=== PATIENT | female | born 1955 | race African-American/Black ===

== ENCOUNTER 2018-06-09 10:43 | Emergency (ER) | payer OTHER ==
[~2018-06-09] VITALS: Ht 152.4 cm; Wt 55.8 kg
[2018-06-09 11:02] VITALS: BP_SYST 156
[2018-06-09] MEDS ORDERED: KETOROLAC TROMETHAMINE 60 MG/2 ML VIAL IM ONE (12:15)
[2018-06-09 12:25] LABS: BILIRUBIN,URINE NEGATIVE (NEGATIVE); BLOOD, URINE 3+ (NEGATIVE); CLARITY/URINE CLEAR (CLEAR); COLOR,URINE YELLOW (YELLOW); GLUCOSE,URINE NEGATIVE (NEGATIVE); KETONES,URINE NEGATIVE (NEGATIVE); LEUKOCYTE ESTERASE ,URINE TRACE (NEGATIVE); NITRITE, URINE NEGATIVE (NEGATIVE); PROTEIN URINE NEGATIVE (NEGATIVE); UROBILINOGEN,URINE 0.2 (0.2-1.0)
[2018-06-09 12:34] LABS: BACTERIA,URINE FEW /HPF (None Seen); MUCUS,URINE None Seen /LPF (None Seen); YEAST,URINE None Seen /HPF (None Seen)
[2018-06-09 12:57] LABS: CALCIUM 9.5 mg/dL (8.4-11.0); CREATININE 0.91 mg/dL (0.55-1.30)
[2018-06-09 13:38] VITALS: BP_SYST 149
== END 2018-06-09 13:37 | disposition home or self-care (01) ==
LOC: SED 10:43
DX: M54.9 Dorsalgia, unspecified (principal); R10.31 Right lower quadrant pain; Z90.710 Acquired absence of both cervix and uterus; Z85.3 Personal history of malignant neoplasm of breast
CPT/HCPCS: 36415; 74176; 80048; 81000; 96372; 99285; J1885

== ENCOUNTER 2018-10-08 14:35 | Emergency (ER) | payer OTHER ==
[~2018-10-08] VITALS: Ht 152.4 cm; Wt 54.4 kg
[2018-10-08 14:47] VITALS: BP_SYST 183
[2018-10-08 16:50] VITALS: BP_SYST 143
== END 2018-10-08 16:50 | disposition home or self-care (01) ==
LOC: SED 14:35
DX: J40 Bronchitis, not specified as acute or chronic (principal); R03.0 Elevated blood-pressure reading, without diagnosis of hypertension; E78.5 Hyperlipidemia, unspecified; Z85.3 Personal history of malignant neoplasm of breast
CPT/HCPCS: 99283